=== PATIENT | female | born 1940 | race Two or more races ===

== ENCOUNTER 2017-06-24 07:19 | Outpatient (CLI) | payer OTHER ==
[~2017-06-24 07:19] MED LIST: ATENOLOL25 GM; ATENOLOL25 MG PO; CALTRATE 600 +1 EACH; CALTRATE 600600 MG PO; CARVEDILOL3.125 MG; ENALAPRIL MALE2.5 MG; LOPERAMIDE2 MG PO; MAGNESIUM OXID400 MG; PROBIOTIC & AC1 EACH PO; PROTECT PLUS S1 EACH; SYNTHROID100 MCG PO; SYNTHROID50 MCG; VITAMIN D31000 UNIT PO
== END 2017-06-24 07:55 | disposition home or self-care (01) ==
LOC: NUCLEAR 07:19
DX: I50.42 Chronic combined systolic (congestive) and diastolic (congestive) heart failure (principal)

== ENCOUNTER 2018-02-17 08:22 | Outpatient (CLI) | payer OTHER | END 2018-02-17 08:29 | disposition home or self-care (01) | LOC: NUCLEAR 08:22 | DX: I50.42 Chronic combined systolic (congestive) and diastolic (congestive) heart failure (principal) ==

== ENCOUNTER 2018-02-24 15:25 | Outpatient (CLI) | payer OTHER | END 2018-02-24 15:28 | disposition home or self-care (01) | LOC: RAD 15:25 | DX: Z01.818 Encounter for other preprocedural examination (principal) ==